=== PATIENT | male | born 1975 | race Two or more races ===

== ENCOUNTER 2018-04-15 08:50 | Outpatient (CLI) | payer OTHER | END 2018-04-15 08:58 | disposition home or self-care (01) | LOC: RAD 501 08:50 | DX: M25.522 Pain in left elbow (principal); M25.532 Pain in left wrist ==

== ENCOUNTER 2018-04-15 11:59 | Outpatient (CLI) | payer OTHER | END 2018-04-15 12:10 | disposition home or self-care (01) | LOC: RAD 11:59 → MRI 12:15 | DX: M25.522 Pain in left elbow (principal); M25.422 Effusion, left elbow | CPT/HCPCS: 73218 ==